=== PATIENT | male | born 1965 | race Caucasian/White ===

== ENCOUNTER → 2022-09-17 | Outpatient (CLI) | payer OTHER | LOC: NM 08:03 | PROVIDERS: ATTEND Student in an Organized Health Care Education/Training Program | DX: I27.20 Pulmonary hypertension, unspecified (principal); K21.00 Gastro-esophageal reflux disease with esophagitis, without bleeding; I10 Essential (primary) hypertension; R55 Syncope and collapse; Z71.6 Tobacco abuse counseling | CPT/HCPCS: 71250; 78580; A9540 ==